=== PATIENT | male | born 1990 | race Hispanic/Latino ===

== ENCOUNTER → 2022-01-29 08:56 | Outpatient (CLI) | payer OTHER, SELFPAY ==
--- NOTE | 2022-01-29 09:02 | DI.RAD.S_ITS ---
PROCEDURE: FL SHOULDER INJECTION MR/CT LT INDICATIONS: LEFT SHOULDER PAIN COMPARISON: None. TECHNIQUE: The indications, alternatives, benefits, risks, and complications of the procedure were explained to the patient. Written informed consent was obtained and placed in the chart. The shoulder was examined fluoroscopically and a site for needle placement chosen for entry into the glenohumeral joint from an anterior approach. The skin was prepped and draped in a sterile fashion, and 1% lidocaine infiltrated from skin down to joint capsule. A spinal needle was inserted into the glenohumeral joint, and a small amount of iodinated contrast media injected to confirm intra-articular placement of the needle tip. This was followed by approximately 12 mL dilute solution of a gadolinium containing MR contrast agent. The needle was removed and a dressing was applied. The patient was given postprocedural instructions and sent to the MR suite for MR imaging. FINDINGS: A single fluoroscopic spot image demonstrates intra-articular location of injected iodinated contrast. IMPRESSION: Successful fluoroscopically guided administration of dilute Gadolinium solution into the shoulder joint for MR arthrogram. Dictated by: Hunter Kulkarni M.D. on 01/29/2022 at 11:08 Approved by: Hunter Kulkarni M.D. on 01/29/2022 at 11:08
--- NOTE | 2022-01-29 09:03 | DI.MRI.S_ITS ---
PROCEDURE: MR SHOULDER LT W CON INDICATIONS: LEFT SHOULDER PAIN TECHNIQUE: After the administration of 12 mL of dilute intra-articular Gadolinium contrast, oblique coronal T1 and T2 spin echo with fat saturation, oblique sagittal T1 spin echo with and without fat saturation, oblique sagittal T2 fast spin echo with fat saturation, axial T1 spin echo with fat saturation through the shoulder. COMPARISON: None. FINDINGS: Image quality: Some series are degraded by motion Rotator cuff: No significant atrophy Teres minor: Intact Supraspinatus: Tendinosis. Infraspinatus: Tendinosis. Subscapularis: Intact Bones and bursae: GH joint: Intact AC joint: Xiop-bm-ysmcfkyo degenerative changes Humeral head: There might be a small Hill-Sachs deformity. No acute edema is seen. Scapula and acromion: Normal morphology Bursa: No bursal contrast Capsule: Labrum: Semi circumferential labral tear, involving the region of the biceps anchor, extending from 11:00 to 3:00. Long head biceps tendon: Normally situated IGHL: Intact Rotator interval: Preserved fat signal Soft tissues: No axillary adenopathy. Lungs are not well seen. IMPRESSION: Semi circumferential labral tear from 11:00 to 3:00 a.m. Superior cuff tendinosis without full-thickness tear. Mild to moderate acromioclavicular degenerative changes. Dictated by: Hunter Kulkarni M.D. on 01/29/2022 at 12:09 Approved by: Hunter Kulkarni M.D. on 01/29/2022 at 12:17
== END ==
DX: S43.492A Other sprain of left shoulder joint, initial encounter (principal); M25.512 Pain in left shoulder
CPT/HCPCS: 23350; 73222